=== PATIENT | female | born 1955 | race Caucasian/White ===

== ENCOUNTER 2019-07-02 17:50 | Emergency (ER) | payer OTHER ==
[2019-07-02] MEDS ORDERED: SODIUM CHLORIDE 0.9% 1000ML 1,000 ML IVS PRN (18:13)
[2019-07-02] MEDS ORDERED: SODIUM CHLORIDE 0.9% (FLUSH) 10 ML SYG IV PRN (18:13)
[2019-07-02 18:43] VITALS: TEMP 98
--- NOTE | 2019-07-02 19:28 | ED.PDOC ---
History of Present Illness - General Chief Complaint: General Stated Complaint: Seizures, stuttering, weakness in all extremities Time Seen by Provider: 07/02/19 18:11 Source: patient, RN notes reviewed, Vital Signs reviewed, family Exam Limitations: physical impairment - History of Present Illness Initial Comments: This is a 64-year-old female with history of bipolar disorder, fibromyalgia, seizure disorder presenting for generalized weakness in all 4 extremities since a fall 1 week ago. Patient states she slipped and fell 1 week ago, fell onto her back and hit her head. Unclear if there is any loss of consciousness at that time. She states the fall happened in her hallway, the next thing she remembered was being on the front porch of her house. This is where her family found her at that time. Since then she states she has had difficulty walking and taking care of herself for the past week. She had a second fall today due to bilateral leg weakness where she fell onto her knees. She did not hit her head or her back at that time. She reports diffuse back pain. No incontinence of bowel/bladder. Allergies/Adverse Reactions: Allergies Quetiapine [From Seroquel] Adverse Reaction (Verified 07/02/19 19:03) Home Medications: Ambulatory Orders Acetaminophen W/ Codeine [Tylenol W/ CODEINE #3] 1 - 2 ea PO Q6H PRN #20 07/02/19 Gabapentin 300 mg PO BID 07/02/19 Meloxicam PRN 07/02/19 RX: Benzonatate 100 mg PO 07/02/19 RX: Clonazepam 10 mg PO 07/02/19 RX: Levothyroxine Sodium 75 mcg PO 07/02/19 RX: tiZANidine [Zanaflex] PRN 07/02/19 Review of Systems - Review of Systems Constitutional: States: weakness - Generalized. Denies: chills, fever EENTM: Denies: eye pain, nose pain, throat pain Respiratory: Denies: cough, orthopnea, short of breath, stridor Cardiology: Denies: edema, palpitations, syncope Gastrointestinal/Abdominal: Denies: diarrhea, nausea, vomiting Genitourinary: States: other - No urinary incontinence. Denies: dysuria, frequency, hematuria Musculoskeletal: States: back pain, joint pain, neck pain. Denies: joint swelling, muscle pain Skin: Denies: change in color, rash Neurological: States: headache, seizure, weakness. Denies: numbness, paresthesia, tingling, tremors All other Systems: Reviewed and Negative Past Medical History (General) - Patient Medical History Hx Seizures: Yes Hx Thyroid Disease: Yes - Hypo Hx Cancer: Yes - Ovarian Surgical History: appendectomy, cancer surgery - Vaccination History Hx Tetanus, Diphtheria Vaccination: No Hx Influenza Vaccination: No Hx Pneumococcal Vaccination: No - Social History Hx Tobacco Use: Yes Hx Alcohol Use: Yes Hx Substance Use: No Hx Substance Use Treatment: No Hx Depression: Yes - Bipolar - Female History Patient is a Female of Child Bearing Age (10 -59 yrs old): No Patient : No Family Medical History - Family History Mother Family History: No Known Physical Exam - Physical Exam General Appearance: Alert, Comfortable, Other - Very odd affect Eye Exam: bilateral normal Ears, Nose, Throat: normal ENT inspection, normal pharynx, other - No tongue abrasion Neck: normal inspection, tender midline Respiratory: chest non-tender, lungs clear, normal breath sounds, no respiratory distress Cardiovascular/Chest: regular rate, rhythm, no edema Gastrointestinal/Abdominal: non tender, soft, other - Pelvis stable, no hip tenderness Back Exam: vertebral tenderness - Diffuse thoracic and lumbar tenderness, no step-offs, deformities, or skin changes. 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 , other - Very odd affect Progress - Progress Progress: 07/02/19 21:12 Rechecked. Further history obtained from son. The initial fall happened 9 days ago, she had no residual deficits or issues following the first fall. She was up and walking and taking care of herself. The weakness did not happen until earlier this afternoon around 1600. Since then she has had weakness in her legs. No incontinence of bowel/bladder. She has a longstanding history of seizures since a head injury in 1999. She takes clonazepam for her seizures. She states that she has been worked up by neurology and told she has epilepsy, but it is not on any antiepileptics at this time. She is now reporting worsening left shoulder pain. I reviewed labs/imaging up to this point. Will obtain shoulder x-ray. At this time no indication for transfer/admission. 07/02/19 22:24 patient is able to stand without much assistance in the emergency department. She states her gait and weakness is now at her baseline. Pain is well contr olled. Both the patient and her son are comfortable with her going home. She has an appointment with her PCP on Thursday morning. I recommended she keep that appointment without fail. Strict warnings given to return the emergency room for worsening back pain, changes in mental status, further seizures, fever, or any other concerns. - Results/Orders Results/Orders: PELVIS XR: IMPRESSION: No acute fracture is identified. CT or MRI could be obtained to better evaluate the hips if there is continued clinical concern. Electronically signed by: Yesi Garner MD 07/02/2019 8:22 PM I reviewed the x-ray personally and agree with radiology interpretation CXR No fracture, no PTX. Chest X-ray included within the pelvis x-ray. No significant traumatic injuries noted on either x-ray. LEFT SHOULDER XR No fracture, no dislocation. X-ray was reviewed personally by me at 9:[address] LUMBAR: IMPRESSION: No acute fracture. Advanced levoscoliosis and associated lateral subluxations. Lower lumbar degenerative disc disease and spondylosis. Vascular calcifications. Electronically signed by: Thanh Conner DO 07/02/2019 8:[address] THORACIC IMPRESSION: No acute thoracic spinal fracture is identified. Electronically signed by: Yesi Garner MD 07/02/2019 8:[address] CERVICAL IMPRESSION: No acute cervical spine fracture. Osteopenia and multilevel degenerative changes. Electronically signed by: Thanh Conner DO 07/02/2019 8:[address] HEAD IMPRESSION: No acute intracranial hemorrhage, hydrocephalus or herniation. Mild cerebral volume loss and chronic small vessel ischemic changes. If persistent clinical concern for acute ischemia, consider MRI brain without contrast for further evaluation. Questionable trace subcutaneous emphysema in the right infratemporal fossa. Electronically signed by: Thanh Conner DO 07/02/2019 8:22 PM Laboratory Tests 07/02/19 07/02/19 07/02/19 18:33 18:33 18:33 WBC 6.3 RBC 3.99 L Hgb 12.9 Hct 38.6 MCV 96.7 MCH 32.3 H MCHC 33.4 RDW 13.4 Plt Count 221 MPV 7.9 Absolute Neuts (auto) 3.40 Absolute Lymphs (auto) 2.20 Absolute Monos (auto) 0.60 Absolute Eos (auto) 0.10 Absolute Basos (auto) 0.10 Neutrophils % 53.1 Lymphocytes % 35.6 Monocytes % 9.0 Eosinophils % 1.3 Basophils % 1.0 PT 9.8 INR < 1.00 PTT (SP) 25.9 Sodium 132 L Potassium 4.4 Chloride 100 L Carbon Dioxide 24 Anion Gap 12.4 BUN 11 Creatinine 0.72 BUN/Creatinine Ratio 15.3 Random Glucose 98 Serum Osmolality 263.9 L Calcium 9.3 Total Bilirubin 0.7 AST 26 ALT 15 Alkaline Phosphatase 71 Troponin I Serum Total Protein 7.1 Albumin 4.5 Globulin 2.6 Albumin/Globulin Ratio 1.7 Ethyl Alcohol 07/02/19 07/02/19 18:33 18:33 WBC RBC Hgb Hct MCV MCH MCHC RDW Plt Count MPV Absolute Neuts (auto) Absolute Lymphs (auto) Absolute Monos (auto) Absolute Eos (auto) Absolute Basos (auto) Neutrophils % Lymphocytes % Monocytes % Eosinophils % Basophils % PT INR PTT (SP) Sodium Potassium Chloride Carbon Dioxide Anion Gap BUN Creatinine BUN/Creatinine Ratio Random Glucose Serum Osmolality Calcium Total Bilirubin AST ALT Alkaline Phosphatase Troponin I < 0.02 Serum Total Protein Albumin Globulin Albumin/Globulin Ratio Ethyl Alcohol < 5.40 CX - EKG/XRAY/CT Comments: NSR, 63, nl axis, no intervals, no ST elevation/depression (read 1816) XRAY: chest CT Ordered: Yes Departure - Departure Clinical Impression: Weakness, Frequent falls, DDD (degenerative disc disease), lumbar Disposition: Discharge to Home or Self Care Condition: Good Departure Forms: ED Discharge - Pt. Copy, Patient Portal Self Enrollment Instructions: Generalized Weakness (DC) Referrals: OLU RAJAN [Primary Care Provider] - 1-2 Days Prescriptions: Acetaminophen W/ Codeine [Tylenol W/ CODEINE #3] 1 - 2 ea PO Q6H PRN #20 PRN Reason: Pain -- Moderate To Severe Home Medications: Ambulatory Orders Acetaminophen W/ Codeine [Tylenol W/ CODEINE #3] 1 - 2 ea PO Q6H PRN #20 07/02/19 Gabapentin 300 mg PO BID 07/02/19 Meloxicam PRN 07/02/19 RX: Benzonatate 100 mg PO 07/02/19 RX: Clonazepam 10 mg PO 07/02/19 RX: Levothyroxine Sodium 75 mcg PO 07/02/19 RX: tiZANidine [Zanaflex] PRN 07/02/19
--- NOTE | 2019-07-02 20:24 | CT ---
EXAM DESCRIPTION: Head CLINICAL HISTORY: 64 years Female multiple falls, altered mental status COMPARISON: None Technique: Contiguous axial images of the brain were obtained without the administration of intravenous contrast.This exam was performed according to our departmental dose-optimization program which includes use of Automated Exposure Control, adjustment of the mA and/or kV according to patient size and/or use of iterative reconstruction technique. DLP: 960 mGy*cm FINDINGS: Brain: No acute intracranial hemorrhage. No extra-axial collection. No mass effect or herniation. Mild prominence of the sulci and cisterns. Confluent periventricular and subcortical white matter hypodensity is noted. Ventricles: Within normal limits in size. Globes and orbits: Prior cataract surgery No acute abnormality. Bones: No acute osseous finding Paranasal sinuses: Paranasal sinuses are clear. Mastoid air cells: Well pneumatized. Soft tissues: Questionable trace subcutaneous emphysema in the right infratemporal fossa. IMPRESSION: No acute intracranial hemorrhage, hydrocephalus or herniation. Mild cerebral volume loss and chronic small vessel ischemic changes. If persistent clinical concern for acute ischemia, consider MRI brain without contrast for further evaluation. Questionable trace subcutaneous emphysema in the right infratemporal fossa. Electronically signed by: Thanh Conner DO 07/02/2019 8:22 PM COMPLAINT ADJUSTER
--- NOTE | 2019-07-02 20:24 | RAD ---
EXAM DESCRIPTION: Pelvis CLINICAL HISTORY: 64 years Female multiple falls COMPARISON: None. TECHNIQUE: Single AP view of the pelvis. FINDINGS: No acute fractures or dislocations are identified. No osseous destructive lesions. Multilevel degenerative change in the lumbar spine with large marginal osteophytes and vacuum disc phenomenon. IMPRESSION: No acute fracture is identified. CT or MRI could be obtained to better evaluate the hips if there is continued clinical concern. Electronically signed by: Yesi Garner MD 07/02/2019 8:22 PM [facility]
--- NOTE | 2019-07-02 20:25 | CT ---
PROCEDURE: Thoracic Spine CLINICAL HISTORY: 64 years Female multiple falls, back pain, lower extremityweakness COMPARISON: None. TECHNIQUE: Contiguous axial images obtained through the thoracic spine without IV contrast. Coronal and sagittal reformatted images obtained. This exam was performed according to our department optimization program which includes automated exposure control, adjustment of the mA and/or kv according to patient size and/or use of iterative reconstruction technique. FINDINGS: Vertebral body alignment unremarkable. No acute thoracic spine fractures are identified. Marginal osteophytosis is present multiple levels. There is mild rightward convexity curvature. Cardiac enlargement with vascular calcification in the coronary arteries. Dependent atelectasis. IMPRESSION: No acute thoracic spinal fracture is identified. Electronically signed by: Yesi Garner MD 07/02/2019 8:24 PM RACING MANAGER
--- NOTE | 2019-07-02 20:27 | CT ---
EXAM DESCRIPTION: CT CERVICAL SPINE WITHOUT CONTRAST CLINICAL HISTORY: 64 years Female multiple falls, AMS COMPARISON: None TECHNIQUE: Multiplanar imaging through the cervical spine without contrast. This exam was performed according to our departmental dose-optimization program, which includes automated exposure control, adjustment of the mA and/or kV according to patient size and/or use of iterative reconstruction technique. DLP: 339 mGy*cm FINDINGS: No fracture. Straightening of cervical lordosis with anterolisthesis from C5 through T1. Scattered facet arthropathy. Mild disc space narrowing. Paraspinal soft tissues are unremarkable. Visualized lung is clear. Visualized abdomen demonstrates no acute abnormality. IMPRESSION: No acute cervical spine fracture. Osteopenia and multilevel degenerative changes. Electronically signed by: Thanh Conner DO 07/02/2019 8:25 PM DRUG AND ALCOHOL TREATMENT SPECIALIST
--- NOTE | 2019-07-02 20:30 | CT ---
EXAM DESCRIPTION: CT LUMBAR SPINE WITHOUT CONTRAST CLINICAL HISTORY: 64 years Female multiple falls, back pain, lower extremity weakness COMPARISON: None TECHNIQUE: Multiplanar imaging through the lumbar spine without contrast. This exam was performed according to our departmental dose-optimization program, which includes automated exposure control, adjustment of the mA and/or kV according to patient size and/or use of iterative reconstruction technique. DLP: 545 mGy*cm FINDINGS: No fracture. Diffuse osteopenia. Levoscoliosis of the lumbar spine with right lateral subluxation of L1 on L2 and left lateral subluxations of L2 on L3 and L3 on L4. Advanced L4-5 and L5-S1 disc space narrowing. Paraspinal soft tissues are unremarkable. Prominence of the right renal collecting system. Vascular calcifications. IMPRESSION: No acute fracture. Advanced levoscoliosis and associated lateral subluxations. Lower lumbar degenerative disc disease and spondylosis. Vascular calcifications. Electronically signed by: Thanh Conner DO 07/02/2019 8:29 PM [facility]COHOL[employer]
[2019-07-02 21:09] VITALS: O2SAT 98
--- NOTE | 2019-07-02 22:11 | RAD ---
EXAM DESCRIPTION: Shoulder,Left 2 or More Views CLINICAL HISTORY: 64 years Female injury, pain COMPARISON: None. TECHNIQUE: LEFT SHOULDER two view FINDINGS: No acute fractures or dislocations identified. No osseous destructive lesions. Acromioclavicular joint appears maintained. IMPRESSION: No acute fracture or dislocation identified. Electronically signed by: Yesi Garner MD 07/02/2019 10:10 PM [facility]
[2019-07-02 22:20] VITALS: BP 170/119
[2019-07-02] MEDS ORDERED: HYDROcodone 5MG/APAP 325MG 1 EA TAB PO ONE (22:24)
--- NOTE | 2019-07-03 00:41 | RAD ---
EXAM DESCRIPTION: X-ray single view chest. CLINICAL HISTORY: 64 years Female, multiple falls COMPARISON: None. TECHNIQUE: Single portable x-ray view of the chest performed on 07/02/2019 at 7:06 PM FINDINGS: The lungs are well expanded and are clear. There is no evidence of a pneumothorax. The cardiac silhouette is normal in size and configuration. The mediastinal contours are normal. No acute osseous abnormality is identified. No focal soft tissue abnormalities are seen. Lines and tubes: None. IMPRESSION: No evidence of acute intrathoracic disease. Electronically signed by: Lashanda Martinez DO 07/03/2019 12:39 AM [facility]
== END 2019-07-02 22:40 | disposition home or self-care (01) ==
LOC: ER 17:50
DX: R53.1 Weakness (principal); M51.36 Other intervertebral disc degeneration, lumbar region; M47.812 Spondylosis without myelopathy or radiculopathy, cervical region; M85.80 Other specified disorders of bone density and structure, unspecified site; F31.9 Bipolar disorder, unspecified; G40.909 Epilepsy, unspecified, not intractable, without status epilepticus; M79.7 Fibromyalgia; E03.9 Hypothyroidism, unspecified; Z91.81 History of falling; Z85.43 Personal history of malignant neoplasm of ovary; Z87.891 Personal history of nicotine dependence; Z88.8 Allergy status to other drugs, medicaments and biological substances; Z79.899 Other long term (current) drug therapy
CPT/HCPCS: 36415; 70450; 71045; 72125; 72128; 72131; 72170; 73030; 80053; 80320; 84484; 85025; 85610; 85730; 93005; J7030